=== PATIENT | female | born 1995 | race African-American/Black ===

== ENCOUNTER 2022-11-30 18:40 | Emergency (ER) | payer BC ==
--- OUTSIDE RECORDS SUMMARY | 2022-11-30 18:49 | XMS REPORT | Continuity of Care Document ---
:[address] [facility] t Address [address] [place] [address] Care Team Providers Name Role Phone MARISAULI Primary Care Physician Unavailable [email or web address] Attending Clinician Unavailable LORRAINE KIM Attending Clinician Unavailable Lorraine Kim DO Attending Clinician PROVIDER, ED TEMP Attending Clinician Unavailable Nancy Molina Attending Clinician Unavailable [email or web address]_S Admitting Clinician Unavailable LORRAINE KIM Admitting Clinician Unavailable Payers Payer Name Policy Type Policy Number Effective Date Expiration Date S colle[place] [id number] 2021 00:[place]:00 [place] [id number] 2020 00:00:00 OUT OF STATE Problems Condition Condition Condition Status Onset Resolution Last Treating Co mments Source Name Details Category Date Date Treatment Clinician Date No known No known Disease Unive rs active active ity of problems problems [facility] Allergies, Adverse Reactions, Alerts Allergy Allergy Status Severity Reaction(s) Onset Inactive Treating Comm ents Source Name Type Date Date Clinician NO KNOWN Drug Active Univers ALLERGIE Class ity of S [facility] Social History Social Habit Start Date Stop Date Quantity Comments Source Exposure to Not sure [facility] SARS-CoV-2 (event) Medica l Branch Sex Assigned At [birth year] [facility] 00:00:00 00:00:00 Medical Branch Smoking Status Start Date Stop Date Source Unknown if ever smoked [facility] Medications Ordered Filled Start Stop Current Ordering Indication Dosage Frequency Signature Comments Components Source Medication Medication Date Date Medication? Clinician (SIG) Name Name iopamidol No [id number] 120mL 120 mL, Univers (ISOVUE 07-17 Intravenou ity o f 370-500 mL) 15:15: 15:15 s, ONCE, 1 [place] injection 00 :00 dose, On Medica l 120 mL Velia Branch 07/17/21 at 1015, Routine morpHINE No 4mg 4 mg, Slow Un fide injection 4 07-17 IV Push, ity of mg 13:30: 12:49 ONCE, 1 [place] 00 :00 dose, On Medical Velia Branch 07/17/21 at 0830, STAT maalox:diph No 15mL 15 mL, Uni vers enhydrAMINE 07-17 Oral, ity of :lidocaine 13:30: 12:48 ONCE, 1 New as 2 % viscous 00 :00 dose, On Medi parvin 1:1:1 Velia Branch (FIRST-MOUT 07/17/21 at [facility]) 0830, oral Routine suspension 15 mL ondansetron No 4mg 4 mg, Slow Univers (ZOFRAN 07-17 IV Push, ity of (PF)) 13:30: 12:48 ONCE, 1 [place] injection 4 00 :00 dose, On Medi parvin mg Velia Branch 07/17/21 at 0830, BRENARDA famotidine No 20mg 20 mg, Univ ers (PEPCID 07-17 Slow IV ity of (PF)) 13:30: 12:49 Push, [place] injection 00 :00 ONCE, 1 Medical 20 mg dose, On Branch Velia 07/17/21 at 0830, Routine No known No Univers medications 07-17 ity of 07:11: [address] Vital Signs Vital Name Observation Time Observation Value Comments Source Systolic blood 2021-07-17 14:17:00 142 mm[Hg] Univer sity of pressure [facility] Diastolic blood 2021-07-17 14:17:00 88 mm[Hg] [facility] Heart rate 2021-07-17 14:17:00 84 /min [facility] Respiratory rate 2021-07-17 14:17:00 16 /min [facility] Oxygen saturation in 2021-07-17 14:17:00 99 /min [facility] Arterial blood by [facility] Pulse oximetry Branch Body temperature 2021-07-17 11:40:[address] [facility] Body height 2021-07-17 11:40:00 167.6 cm [facility] Body weight 2021-07-17 11:40:00 154.223 kg [facility] BMI 2021-07-17 11:40:00 54.88 kg/m2 [facility] BP Systolic 2021-02-05 10:48:[address] [facility] ([facility]) BP Diastolic 2021-02-05 10:48:[address] [facility] ([facility]) BMI (Body Mass 2021-02-05 10:48:[address] [facility] [place] ([place] an) Height 2021-02-05 10:48:[address] [facility] ([facility]) Weight Measured 2021-02-05 10:48:40 [facility] Body Temperature 2021-02-05 10:48:[address] [facility] ([facility]) Heart Rate 2021-02-05 10:48:[address] [facility] ([facility]) Respiratory Rate 2021-02-05 10:48:[address] [facility] ([facility]) O2 % BldC Oximetry 2021-02-05 10:48:[address] [facility] Procedures Procedure Date / Time Performed Performing Clinician Sour e CT ABDOMEN PELVIS W 2021-07-17 14:08:44 Lorraine Kim [facility] LIPASE 2021-07-17 12:46:[address] [facility] COMP. METABOLIC PANEL 2021-07-17 12:46:00 Lorraine Kim [facility] ([id number]) [facility] CBC WITH DIFF 2021-07-17 12:46:[address] [facility] URINALYSIS 2021-07-17 12:46:[address] [facility] POCT TEST 2021-07-17 12:16:00 Lorraine Kim [facility] NOTICE OF PRIVACY 2021-07-17 11:28:09 Doctor Unassigned, No [facility] XR Chest Pa & Lat 2018-10-19 00:00:[address] [facility] [place] ([place]) Influenza Types A,B 2018-10-19 00:00:[address] [facility] Direct EIA [place] ([place]) Encounters Start End Encounter Admission Attending Care Care Encounter Source Date/Time Date/Time Type Type Clinicians Facility Department ID 2022-11-30 2022-11-30 Outpatient GC_GCBZW_Ka PRIV PRIV [id number] [facility] 00:00:00 00:00:00 diyala_S [id number] Medic al 2021-07-17 2021-07-17 Emergency X [facility] ERT [id number] Univers 06:32:00 09:37:00 LORRAINE dill [facility] 2021-07-17 2021-07-17 Emergency [facility] [id number] Univers 06:32:00 09:37:00 Lor[id number] [id number] [place] [address] Branch 2018-10-19 2018-10-20 Departed ER PROVIDER, 2.16.840. [place] J0 [id number] [facility] 22:47:00 00:16:00 Emergency ED [id number]. [facility] [address] - 3[facility]4991.[facility] 1.2 [place] ([place]) 2018-10-19 2018-10-20 Emergency ER [place], STLSJ STLS [id number] 22:47:00 00:16:[address] [facility]19842092 [facility] Results Test Description Test Time Test Comments Results Result Comments Source COMP. METABOLIC PANEL (39980) 2021-07-17 13:28:04 Test Item Value Reference Range Interpretation Comme nts NA (test code = 9027745219) 137 mmol/L 135-145 K (test code = 6468282526) 4.3 mmol/L 3.5-5.0 CL (test code = 0920250306) 104 mmol/L 98-108 CO2 TOTAL (test code = 24 mmol/L 23-31 4958263522) AGAP (test code = 0265554441) 2-16 BUN (test code = 4785306716) 14 mg/dL 7-23 GLUCOSE (test code = 5656307997) 106 mg/dL 70-110 CREATININE (test code = 0.64 mg/dL 0.50-1.04 5193902237) TOTAL BILI (test code = 0.3 mg/dL 0.1-1.0 4862909553) CALCIUM (test code = 9265671184) 8.9 mg/dL 8.6-10.6 T PROTEIN (test code = 6.7 g/dL 6.3-8.2 3582984368) ALBUMIN (test code = 5709961166) 3.8 g/dL 3.5-5.0 ALK PHOS (test code = 2301136621) 56 U/L 34-122 ALTv (test code = 1742-6) 16 U/L 5-35 AST(SGOT) (test code = 20 U/L 13-40 6881385291) eGFR (test code = 1537438168) mL/min/1.73m2 GELA (test code = GELA) Association of Glomerular Filtration Rate (GFR) and Staging of Kidney Disease* + +--------- + ----+| GFR (mL/min/1.73 m2) ?| With Kidney Damage ?| ?Without Kidney Damage+ +--- + +| ?>90 ?| ?Stage one ?| ? Normal ?+ +-------- + -----+| ?60-89 ?| ?Stage two ?| ? Decreased GFR ? + +--------- + ----+| ?30-59 ?| ?Stage three ?| ? Stage three ? + +--------- + ----+| ?15-29 ?| ?Stage four ? | ? Stage four ?+ +-------- + -----+| ?<15 (or dialysis) ? ?| ?Stage five ? | ? Stage five ?+ +-------- + -----+ *Each stage assumes the associated GFR level has been in effect for at least three months. ?Stages 1 to 5, with or without kidney disease, indicate chronic kidney disease. Notes: Determination of stages one and two (with eGFR >59mL/min/1.73 m2) requires estimation of kidney damage for at least three months as defined by structural or functional abnormalities of the kidney, manifested by either:Pathological abnormalities or Markers of kidney damage (including abnormalities in the composition of the blood or urine or abnormalities in imaging tests). [facility] 13:27:23 Test Item Value Reference Range Interpretation Comments LIPASE (test code = 6416427501) 85 U/L 0-220 Lab Interpretation (test code = Normal 43023-3) [facility] WITH [id number] 13:16:06 Test Item Value Reference Range Interpretation Comments WBC (test code = See_Comment [Automated 4990-2) message] The sy stem which generated this result transmitted reference range : 4.30 - 11.10 10*3/?L. The reference range was not used to interpret this result as normal/abnormal . RBC (test code = See_Comment [Automated 506-8) message] The sy stem which generated this result transmitted reference range : 3.93 - 5.25 10*6/?L. The reference range was not used to interpret this result as normal/abnormal . HGB (test code = 13.0 g/dL 11.6-15.0 718-7) HCT (test code = 39.4 % 35.7-45.2 4544-3) MCV (test code = 85.8 fL 80.6-95.5 787-2) MCH (test code = 28.3 pg 25.9-32.8 785-6) MCHC (test code = 33.0 g/dL 31.6-35.1 786-4) RDW-SD (test code = 43.8 fL 39.0-49.9 39892-2) RDW-CV (test code = 13.9 % 12.0-15.5 788-0) PLT (test code = See_Comment [Automated 777-3) message] The sy stem which generated this result transmitted reference range : 166 - 358 10*3/ ?L. The reference r kenia was not used to interpret this result as normal/abnormal . MPV (test code = 10.7 fL 9.5-12.9 45257-7) NRBC/100 WBC (test See_Comment [Automat ed code = 5585582498) message] The system which generated this result transmitted reference range : 0.0 - 10.0 /100 WBCs. The refer ence range was not u sed to interpret th is result as normal/abnormal . NRBC x10^3 (test code <0.01 See_Comment [Auto mated = 9638014220) message] The s ystem which generated this result transmitted reference range : 10*3/?L. The reference range was not used to interpret this result as normal/abnormal . GRAN MAT (NEUT) % 55.4 % (test code = 770-8) IMM GRAN % (test code 0.30 % = 8420380223) LYMPH % (test code = 36.5 % 736-9) MONO % (test code = 6.6 % 5905-5) EOS % (test code = 0.9 % 713-8) BASO % (test code = 0.3 % 706-2) GRAN MAT x10^3(ANC) 5.68 10*3/uL 1.88-7.09 (test code = 4721458403) IMM GRAN x10^3 (test 0.03 10*3/uL 0.00-0.06 code = 0638179841) LYMPH x10^3 (test code 3.75 10*3/uL 1.32-3.29 H = 731-0) MONO x10^3 (test code 0.68 10*3/uL 0.33-0.92 = 742-7) EOS x10^3 (test code = 0.09 10*3/uL 0.03-0.39 711-2) BASO x10^3 (test code 0.03 10*3/uL 0.01-0.07 = 704-7) Lab Interpretation Abnormal (test code = 47140-2) [facility] [id number] 12:16:00 Test Item Value Reference Range Interpretation Comments POCT PREG (test code = 1605) negative On board controls acceptable with present C Line (test code = 3574) POCT PREG LOT # (test code = 3575) [id number] POCT PREG TEST DATE (test 01/02/2023 code = 3576) Lab Interpretation (test code = Normal 52217-1) [facility] Ag [id number] 23:57:00 Test Item Value Reference Range Interpretation Comments Influenza A B Ag The rapid Flu A B test Screen (test code = can distinguish between FLU) influenza A Influenza A B Ag follow up confirmatory Screen (test code = testing is warranted. FLU1) Influenza A B Ag FLUB A Screen (test code = FLU1) Influenza A B Ag N A Screen (test code = FLU1) [facility] Name: MILADYS LÓPEZ [employer] Phys: [place] [address] : 1995 Age: 23 SEX:F [phone] Exam Date: 10/19/18 Status: REG ER Acct: [id number] Loc: ERS Pt Unit #: [id number] Report #: [id number] CC: Nancy Thomas IMAGING SERVICES REPORT Order # Category/Exam [id number] RAD/XR Chest Pa Lat STANDARD ([id number]): . Results EXAM: Two views chest PROVIDED CLINICAL HISTORY: Fever COMPARISON: None FINDINGS: Cardiac and mediastinal silhouette appears within normal limits. Lungs appear free of significant opacity. No pleural fluid or pneumothorax apparent. IMPRESSION: No evidence for an acute cardiopulmonary process. Reported By: Stuart Weller MD Electronically Signed Date/Time: 10/19/182319 Technologist: CHRIS Dictated Date/Time: 10/19/18 2169 Transcribed Date/Time:"
[2022-11-30 21:31] VITALS: BP 168/99; TEMP 97.4; O2SAT 100
--- NOTE | 2022-12-01 20:22 | EDPHYS ---
Physician Documentation [facility] Name: Ghazal Sousa Age: 27 yrs Sex: Female : 1995 Arrival Date: 11/30/2022 Time: 18:40 Bed Waiting Private MD: ED Physician Izabel Bermeo HPI: 11/30 23:40 This 27 yrs old Black Female presents to ER via Ambulatory with complaints of Chest kb Pain, Arm Pain, Headache. 23:40 The patient or guardian reports chest pain that is located primarily in the left kb clavicle. The pain radiates to the left arm, the left shoulder, neck. Associated signs and symptoms: The patient has no apparent associated signs or symptoms. The chest pain is described as dull. Duration: The patient or guardian reports a single episode, that is still ongoing. Modifying factors: The symptoms are alleviated by nothing. the symptoms are aggravated by nothing. Severity of pain: At its worst the pain was mild moderate in the emergency department the pain is unchanged. The patient has not experienced similar symptoms in the past. The patient has not recently seen a physician. Pt reports pain to left clavicle area that radiates to left arm, left chest and neck. 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 Denies shortness of breath, nausea, vomiting. 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 - Social history:: Smoking status: Patient denies any tobacco usage or history of. ROS: 23:39 Constitutional: Negative for fever, chills, and weight loss. kb 23:39 Neck: Positive for pain at rest. 23:39 Cardiovascular: Positive for chest pain. 23:39 MS/extremity: Positive for pain, of the left arm. 23:39 All other systems are negative. Exam: 23:39 Constitutional: This is a well developed, well nourished patient who is awake, alert, kb and in no acute distress. Head/Face: Normocephalic, atraumatic. ENT: Moist Mucous membranes Cardiovascular: Regular rate and rhythm with a normal S1 and S2. No gallops, murmurs, or rubs. No pulse deficits. Respiratory: Respirations even and unlabored. No increased work of breathing. Talking in full sentences Abdomen/GI: Soft, non-tender. No distention Skin: Warm, dry with normal turgor. Normal color. MS/ Extremity: Pulses equal, no cyanosis. Neurovascular intact. Full, normal range of motion. Neuro: Awake and alert, GCS 15, oriented to person, place, time, and situation. Moves all extremities. Normal gait. 12/01 01:21 ECG was reviewed by the Attending Physician. Vital Signs: 11/30 18:49 BP 168 / 99; Pulse 86; Resp 8; Temp 97.4; Pulse Ox 100% on R/A; Weight 154.22 kg; mb9 Height 5 ft. 6 in. ; Pain 5/10; 18:49 Body Mass Index 54.88 (154.22 kg, 167.64 cm) mb9 18:49 Pain Scale: Adult mb9 MDM: 18:54 Patient medically screened. kb 23:39 Data reviewed: vital signs, nurses notes. kb 23:43 Differential diagnosis: abnormal EKG, acute myocardial infarction, anxiety, chest wall kb pain. Test considered but Not performed: X-ray: chest x-ray considered, but pt does not want anything done but the EKG. Counseling: I had a detailed discussion with the patient and/or guardian regarding the historical points, exam findings, and any diagnostic results supporting the discharge/admit diagnosis, the need for outpatient follow up, a family practitioner, to return to the emergency department if symptoms worsen or persist or if there are any questions or concerns that arise at home. ED course: Pt elected to leave after EKG. States she doesn't want the blood work or chest x-ray. STates she believes the pain is due to stress. 11/30 18: Order name: Cardiac monitoring; Complete Time: 19:00 11/30 1857 Order name: EKG - Nurse/Tech; Complete Time: 19:00 11/30 18:57 Order name: IV Saline Lock 11/3057 Order name: Labs collected and sent 08/28 18:57 Order name: O2 Per Protocol; Complete Time: 19:00 kb 11/30 18:57 Order name: O2 Sat Monitoring; Complete Time: 19:00 kb EC/29 01:21 Rate is 92 beats/min. Rhythm is regular. QRS [place] is Normal. HI interval is normal at kb 174 msec. QRS interval is normal at 96 msec. QT interval is normal at 450 msec. Administered Medications: No medications were administered Disposition Summary: 11/30/22 20:20 Discharge Ordered Location: Home kb Condition: Stable kb Diagnosis - Pain in left arm kb Followup: kb - With: Emergency Department - When: As needed - Reason: Worsening of condition Followup: kb - With: Private Physician - When: 2 - 3 days - Reason: Recheck today's complaints, Continuance of care, Re-evaluation by your physician Forms: - Medication Reconciliation Form kb - Thank You Letter kb - Antibiotic Education kb - Prescription Opioid Use kb - Patient Portal Instructions kb - Leadership Thank You Letter kb Signatures: Dispatcher [employer] Leidy Montoya, LIZ-Aurora BAILEYP-Zohreh Leonard, RN RN mb9
--- NOTE | 2022-12-01 20:22 | ER ---
Nurse's Notes [facility] Name: Ghazal Sousa Age: 27 yrs Sex: Female : 1995 Arrival Date: 11/30/2022 Time: 18:40 Bed Waiting Private MD: Diagnosis: Pain in left arm Presentation: 11/30 18:49 Chief complaint: Patient states: "Today at 1730, I started having left arm pain that mb9 radiates to my neck and have a headache as well. When I was walking, I started getting SOB and a sharp pain from my stomach to my chest". Coronavirus screen: Vaccine status: Patient reports being unvaccinated. Ebola Screen: No symptoms or risks identified at this time. Initial Sepsis Screen: Does the patient meet any 2 criteria? No. Patient's initial sepsis screen is negative. Does the patient have a suspected source of infection? No. Patient's initial sepsis screen is negative. Risk Assessment: Do you want to hurt yourself or someone else? Patient reports no desire to harm self or others. Onset of symptoms was November 30, 2022. 18:49 Method Of Arrival: Ambulatory mb9 18:49 Acuity: EMY 3 mb9 Triage Assessment: 18:53 General: Appears in no apparent distress. Behavior is anxious. Pain: Complains of pain mb9 in chest and left arm. Neuro: Recinos Agitation-Sedation Scale (RASS): 0 - Alert and Calm Level of Consciousness is awake, alert, obeys commands, Oriented to person, place, time, situation, Appropriate for age. Cardiovascular: Patient's skin is warm and dry. Respiratory: Airway is patent. Derm: Skin is pink, warm \\T\\ dry. Musculoskeletal: Range of motion: intact in all extremities. 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 - Social history:: Smoking status: Patient denies any tobacco usage or history of. Screenin:46 [facility] ED Fall Risk Assessment (Adult) History of falling in the last 3 months, bp including since admission No falls in past 3 months (0 pts). Abuse screen: Denies threats or abuse. Denies injuries from another. Nutritional screening: No deficits noted. Tuberculosis screening: No symptoms or risk factors identified. Assessment: 19:46 Reassessment: PT LEAVING AMA. PT COUNSELED TO REMAIN BUT DECLINED. PT URGED TO RETURN bp IF S/S WORSEN. Vital Signs: 18:49 BP 168 / 99; Pulse 86; Resp 8; Temp 97.4; Pulse Ox 100% on R/A; Weight 154.22 kg; mb9 Height 5 ft. 6 in. ; Pain 5/10; 18:49 Body Mass Index 54.88 (154.22 kg, 167.64 cm) mb9 18:49 Pain Scale: Adult mb9 ED Course: 18:47 Patient arrived in ED. im 18:51 Triage completed. mb9 18:51 Arm band placed on. mb9 18:53 Leidy Smith [facility]-C [facility] kb 18:53 Angelito Edwards MD is Attending Physician. kb 18:54 Izabel Bermeo is Attending Physician. kb 19:24 Radiology exam delayed due to pt was not found in ER lobby, went twice looking for her .az 19:48 No provider procedures requiring assistance completed. Patient did not have IV access bp during this emergency room visit. Patient maintains SpO2 saturation greater than 95% on room air. Administered Medications: No medications were administered Medication: 19:46 VIS not applicable for this client. bp Outcome: 19:46 AMA AMA form signed bp 19:46 Condition: stable 20:20 Discharge ordered by . kb 20:21 Patient left the ED. kb Signatures: Leidy Smith FNP-C FNP-Ckb Peltier, Brian, RN RN bp Dasha Harmon, Zohreh Berry RN RN mb9 Shonda Wade im
--- NOTE | 2022-12-02 13:06 | EKG ---
Test Date: 2022-11-30 Test Time: 18:58:30 Prosthetic Technician: MB MEASUREMENT RESULTS: Intervals: Rate: 92 MT: 174 QRSD: 96 QT: 364 QTc: 450 [place]: P: 66 MT: 174 QRS: 6 T: 48 INTERPRETIVE STATEMENTS: Normal sinus rhythm Incomplete right bundle branch block Borderline ECG No previous ECG available for comparison Electronically Signed On 12-02-22 13:04:54 CDT by Shane Ingram
== END 2022-11-30 20:21 | disposition home or self-care (01) ==
LOC: ER 18:40
DX: M79.602 Pain in left arm (principal); R07.9 Chest pain, unspecified; I10 Essential (primary) hypertension
CPT/HCPCS: 93005; 99283